=== PATIENT | male | born 1990 | race African-American/Black ===

== ENCOUNTER 2023-09-11 09:49 | Emergency (ER) | payer MEDICAID ==
[~2023-09-11] VITALS: Ht 177.8 cm; Wt 72.0 kg
[2023-09-11 10:07] VITALS: BP 123/75; PULSE 72; RESP 16; TEMP 98.6; O2SAT 100
[2023-09-11] MEDS ORDERED: PSEU-207 MT (10:32)
== END 2023-09-11 12:02 | disposition home or self-care (01) ==
LOC: ER 09:49
DX: J32.9 Chronic sinusitis, unspecified (principal)
CPT/HCPCS: 99282

== ENCOUNTER 2025-01-17 07:37 | Emergency (ER) | payer MEDICAID ==
[~2025-01-17] VITALS: Ht 180.3 cm; Wt 86.2 kg
[~2025-01-17 07:37] MED LIST: PSEU-207 MT
[2025-01-17 07:44] VITALS: BP 153/90; TEMP 37.1; O2SAT 100
[2025-01-17 07:47] VITALS: PULSE 65; RESP 16; O2SAT 100
== END 2025-01-17 12:42 | disposition left against medical advice (07) ==
LOC: ER 08:48
DX: H92.03 Otalgia, bilateral (principal); Z53.21 Procedure and treatment not carried out due to patient leaving prior to being seen by health care provider

== ENCOUNTER 2025-07-10 08:30 | Emergency (ER) | payer MEDICAID ==
[~2025-07-10] VITALS: Ht 177.8 cm; Wt 70.0 kg
[~2025-07-10 08:30] MED LIST changes: -PSEU-207 MT; +PSEU-307 MT
[2025-07-10 08:38] VITALS: TEMP 36.8; O2SAT 100
[2025-07-10] MEDS ORDERED: AMOX1TAB16 MT (08:51)
[2025-07-10] MEDS ORDERED: CIPHCO EACH EAR (08:51)
[2025-07-10 09:07] VITALS: BP 127/81; PULSE 60; RESP 18; O2SAT 100
== END 2025-07-10 09:10 | disposition home or self-care (01) ==
LOC: ER 08:30
DX: H66.93 Otitis media, unspecified, bilateral (principal); H60.93 Unspecified otitis externa, bilateral
CPT/HCPCS: 99283

== ENCOUNTER 2025-11-02 23:15 | Emergency (ER) | payer MEDICAID ==
[~2025-11-02] VITALS: Ht 177.8 cm; Wt 71.0 kg
[~2025-11-02 23:15] MED LIST changes: +AMOX1TAB16 MT; +CIPHCO EACH EAR
[2025-11-02 23:16] VITALS: BP_DIAS 98; O2SAT 99
[2025-11-03] MEDS: TETANUS, DIPHTHERIA, PERTUSSIS VAC/PF 0.5ML (>10YR OLD) IM ONE (00:50)
[2025-11-03] MEDS: KETOROLAC 15MG/ML VIAL IM ONE (00:50)
[2025-11-03] MEDS: LIDOCAINE HCL 1% 20ML VIAL INFIL ONE (01:13)
[2025-11-03] MEDS ORDERED: CEPH500C2 MT (02:01)
[2025-11-03] MEDS ORDERED: IBUP-2028 MT (02:02)
[2025-11-03] MEDS ORDERED: SULF1TAB48 MT (02:03)
[2025-11-03 02:10] VITALS: BP_SYST 137; PULSE 60; RESP 14; TEMP 36.5; O2SAT 100
== END 2025-11-03 02:13 | disposition home or self-care (01) ==
LOC: ER 23:15
DX: L02.412 Cutaneous abscess of left axilla (principal)
CPT/HCPCS: 99284; 90715; 10060; 90471; 96372; J1885; J2003; Z7610 ×3